=== PATIENT | male | born 1990 | race African-American/Black ===

== ENCOUNTER 2019-12-24 12:32 | Emergency (ER) | payer OTHER ==
[~2019-12-24] VITALS: Ht 177.8 cm; Wt 53.1 kg
[2019-12-24 12:37] VITALS: Ht 177.8 cm; Wt 53.1 kg
[2019-12-24 15:00] VITALS: BP 115/89
== END 2019-12-24 15:00 | disposition home or self-care (01) ==
LOC: ED 12:32
DX: R06.00 Dyspnea, unspecified (principal); G47.00 Insomnia, unspecified; R07.89 Other chest pain